=== PATIENT | female | born 1985 | race African-American/Black ===

== ENCOUNTER 2018-06-11 16:09 | Emergency (ER) | payer OTHER ==
[~2018-06-11] VITALS: Ht 170.2 cm; Wt 91.0 kg
[2018-06-11 16:25] VITALS: BP 135/69
== END 2018-06-11 19:13 | disposition left against medical advice (07) ==
LOC: ER 16:09
DX: S01.112A Laceration without foreign body of left eyelid and periocular area, initial encounter (principal); F12.10 Cannabis abuse, uncomplicated; F17.200 Nicotine dependence, unspecified, uncomplicated; Z88.6 Allergy status to analgesic agent; Y08.89XA Assault by other specified means, initial encounter; Y93.89 Activity, other specified; Y92.89 Other specified places as the place of occurrence of the external cause; Y99.8 Other external cause status
CPT/HCPCS: 99283; X7700; Z7610; 99281

== ENCOUNTER 2019-04-01 22:05 | Inpatient (IN) | payer OTHER ==
[~2019-04-01] VITALS: Ht 167.6 cm; Wt 81.6 kg
[2019-04-01] MEDS ORDERED: METHYLPREDNISOLONE SOD SUCC 125 MG/2 ML VIAL IV STA (22:34)
[2019-04-01] MEDS ORDERED: SODIUM CHLORIDE 0.9% 1,000 ML IV ONE (22:34)
[2019-04-01] MEDS ORDERED: ONDANSETRON HCL 4MG/2ML INJ IV STA (22:34)
[2019-04-01] MEDS ORDERED: IPRATROPIUM/ALBUTEROL 0.5-3(2.5)MG/3ML NEB HHN ONE (22:45)
[2019-04-01] MEDS ORDERED: LEVOFLOXACIN 750MG PREMIX 150 ML IV ONE (22:45)
[2019-04-02] MEDS ORDERED: PREDNISONE 20MG TABLET PO ONE
[2019-04-02] MEDS ORDERED: LEVOFLOXACIN 500MG TABLET PO ONE
[2019-04-02] MEDS ORDERED: DILTIAZEM HCL 30MG TABLET PO ONE (01:30)
[2019-04-02 01:45] LABS: *AMPHETAMINES SCREEN URINE NEGATIVE (NEGATIVE); *BARBITURATES SCREEN URINE NEGATIVE (NEGATIVE); *BENZODIAZEPINES SCREEN URINE NEGATIVE (NEGATIVE); *COCAINE SCREEN URINE NEGATIVE (NEGATIVE); CANNABINOID URINE SCREEN NEGATIVE (NEGATIVE); METHADONE URINE SCREEN NEGATIVE (NEGATIVE); OPIATES URINE SCREEN NEGATIVE (NEGATIVE); PHENCYCLIDINE URINE SCREEN NEGATIVE (NEGATIVE)
[2019-04-02 03:00] VITALS: BP 112/68
[2019-04-02] MEDS ORDERED: DEXTROSE 50% WATER 50ML SYRINGE IV PRN ×2 (03:30→09:30)
[2019-04-02] MEDS ORDERED: ONDANSETRON HCL 4MG/2ML INJ IM PRN (03:30)
[2019-04-02] MEDS ORDERED: ONDANSETRON HCL 4MG TABLET PO PRN (03:30)
[2019-04-02] MEDS ORDERED: BLOOD SUGAR DIAGNOSTIC STRIP TEST SCH ×2 (07:10→12:10)
[2019-04-02] MEDS ORDERED: INSULIN LISPRO 100 UNITS/ML SUBCUT SCH ×2 (07:40→12:40)
[2019-04-02 08:00] VITALS: BP 118/74
[2019-04-02] MEDS ORDERED: METOPROLOL TARTRATE 50MG TABLET PO SCH (09:00)
[2019-04-02] MEDS ORDERED: ENOXAPARIN 40MG/0.4ML SYR SUBCUT SCH ×2 (09:00)
[2019-04-02] MEDS ORDERED: FAMOTIDINE 20MG TABLET PO SCH (09:00)
[2019-04-02] MEDS ORDERED: DILTIAZEM HCL 5MG/ML 5ML VIAL IV NR (09:30)
[2019-04-02] MEDS ORDERED: IPRATROPIUM BROMIDE (0.02%) 0.5MG/2.5ML NEB HHN SCH (10:00)
[2019-04-02 12:00] VITALS: BP 120/79
[2019-04-02] MEDS ORDERED: DILTIAZEM HCL 30MG TABLET PO SCH (14:00)
[2019-04-02 14:20] VITALS: BP 120/79
[2019-04-02] MEDS ORDERED: RIVAROXABAN 10 MG TABLET PO SCH (17:00)
== END 2019-04-02 14:43 | disposition home or self-care (01) | DRG 140 ==
LOC: ER 22:05 → EDBEDREQTM 04-02 01:25 → EDBEDREQ 04-02 01:25 → EDBEDREQDT 04-02 01:25 → ENRESERV 04-02 01:49 → 8WST 04-02 02:26
PROVIDERS: ADMIT Internal Medicine; ATTEND Internal Medicine
DX: J44.1 Chronic obstructive pulmonary disease with (acute) exacerbation (principal); I50.23 Acute on chronic systolic (congestive) heart failure; E11.65 Type 2 diabetes mellitus with hyperglycemia; I42.9 Cardiomyopathy, unspecified; I48.91 Unspecified atrial fibrillation; I11.0 Hypertensive heart disease with heart failure; F17.210 Nicotine dependence, cigarettes, uncomplicated; E66.9 Obesity, unspecified; Z60.2 Problems related to living alone; K29.70 Gastritis, unspecified, without bleeding; Z91.14 Patient's other noncompliance with medication regimen; Z91.19 Patient's noncompliance with other medical treatment and regimen; Z88.8 Allergy status to other drugs, medicaments and biological substances; Z68.29 Body mass index [BMI] 29.0-29.9, adult
CPT/HCPCS: 71045; 80305; 82962; 93005; 93306; 94640; 99285; J1815; J7030; J7620